=== PATIENT | male | born 1985 | race Caucasian/White ===

== ENCOUNTER 2018-11-25 13:41 | Emergency (ER) | payer MEDICAID ==
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
[2018-11-25] MEDS ORDERED: Ondansetron 4 MG Tab.DIS PO ONE (14:59)
[2018-11-25] MEDS ORDERED: Acetaminophen/oxyCODONE 325-5 MG Tab PO ONE (14:59)
[2018-11-25] MEDS ORDERED: carBAMazepine 100 MG Tab.Chew PO ONE (14:59)
--- NOTE | 2018-11-25 16:18 | CT ---
Head CT Technique: Multiple axial sections through the brain were obtained. Intravenous contrast was not utilized. Comparison: No prior intracranial imaging is available. Findings: Ventricles along with basal cisterns and sulci over the convexities are within normal limits for the patient's age. No abnormal parenchymal densities are seen. No evidence of intracranial hemorrhage. No midline shift or mass effect is seen. Bone window settings were reviewed which show no acute calvarial abnormality. Visualized sinuses show slight mucosal thickening within the frontal and ethmoid sinuses which is felt to be incidental. Impression: 1. Sinus findings which are felt to be incidental. 2. No acute intracranial abnormality is identified. Diagnostic code #2 I agree with preliminary report from [facility], finalized on 11/25/18, 4:04 PM Central Time
== END 2018-11-25 15:35 | disposition home or self-care (01) ==
LOC: JD.ED 13:41
DX: G44.019 Episodic cluster headache, not intractable (principal); F17.210 Nicotine dependence, cigarettes, uncomplicated
CPT/HCPCS: 70450; 99284; A9270; 99283

== ENCOUNTER 2018-12-04 16:21 | Emergency (ER) | payer MEDICAID ==
[2018-12-04] MEDS: Ketorolac 30 MG/ML SDV IVPUSH ONE (17:07)
[2018-12-04] MEDS: Prochlorperazine 10 MG/2 ML SDV IVPUSH ONE (17:08)
[2018-12-04] MEDS: diphenhydrAMINE 50 MG/ML SDV IVPUSH ONE (17:10)
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
[2018-12-04] MEDS: Sodium Chloride 0.9% 10 ML Syringe FLUSH PRN (17:14)
== END 2018-12-04 17:47 | disposition home or self-care (01) ==
LOC: JD.ED 16:21
DX: G44.85 Primary stabbing headache (principal); F17.210 Nicotine dependence, cigarettes, uncomplicated
CPT/HCPCS: 96374; 96375; 99283-25; 99284; J0780; J1200; J1885

== ENCOUNTER 2018-12-11 08:29 | Emergency (ER) | payer MEDICAID ==
[2018-12-11] MEDS ORDERED: Ketorolac 60 MG/2 ML SDV IM ONE (10:20)
[2018-12-11] MEDS ORDERED: Acetaminophen 325 MG Tab PO ONE (10:20)
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
== END 2018-12-11 10:40 | disposition home or self-care (01) ==
LOC: JD.ED 08:29
DX: J06.9 Acute upper respiratory infection, unspecified (principal); F17.210 Nicotine dependence, cigarettes, uncomplicated
CPT/HCPCS: 87081; 87430; 96372; 99284; A9270; J1885

== ENCOUNTER 2018-12-29 14:06 | Emergency (ER) | payer MEDICAID ==
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
[2018-12-29] MEDS ORDERED: Ketorolac 30 MG/ML SDV IM ONE (15:52)
--- NOTE | 2018-12-30 08:46 | CR ---
Pelvis and left hip: AP view of the pelvis was obtained as well as AP and frog-leg lateral views of the left hip. Comparison: No previous pelvis or hip exam. Joint spaces within both hips are maintained. Sacroiliac joints are within normal limits. No fracture or other bony abnormality is seen. Impression: 1. Unremarkable AP pelvis or two-view left hip exam. Diagnostic code #1
== END 2018-12-29 16:00 | disposition home or self-care (01) ==
LOC: JD.ED 14:06
DX: S70.02XA Contusion of left hip, initial encounter (principal); W00.0XXA Fall on same level due to ice and snow, initial encounter
CPT/HCPCS: 73502-26-LT; 73502-LT; 99283

== ENCOUNTER 2019-01-07 16:25 | Emergency (ER) | payer MEDICAID ==
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
== END 2019-01-07 17:28 | disposition home or self-care (01) ==
LOC: JD.ED 16:25
DX: K02.9 Dental caries, unspecified (principal); F17.210 Nicotine dependence, cigarettes, uncomplicated
CPT/HCPCS: 99282; 99283